=== PATIENT | female | born 1995 | race Caucasian/White ===

== ENCOUNTER 2017-07-04 22:40 | Emergency (ER) | payer SELFPAY ==
--- NOTE | 2017-07-04 23:29 | ER Document Report ---
HPI - HPI Pain Level: 3 Notes: Patient is a 21-year-old female no significant past medical history presents ED complaining of a sore throat and some white spots on the back of her throat 3- 4 days. Patient states that she is otherwise eating and drinking without difficulties. She is urinating normally and having normal bowel movements. Patient has use of Tylenol Motrin as needed. She otherwise feels well with no other concerns or complaints at this time. Patient denies any drug allergies. Denies any headache, fever, head injury, neck pain, changes in vision/speech/ mentation/hearing, URI, chest pain, palpitations, syncope, cough, shortness of breath, wheeze, dyspnea, abdominal pain, nausea/vomiting/diarrhea, dysuria, hematuria, or rash. - ROS Notes: REVIEW OF SYSTEMS: CONSTITUTIONAL : Denies fever, chills, or sweats. Denies recent illness. EENT: see hpi CARDIOVASCULAR: Denies chest pain. Denies palpitations or racing or irregular heart beat. RESPIRATORY: Denies cough, cold, or chest congestion. Denies shortness of breath, difficulty breathing, or wheezing. GASTROINTESTINAL: Denies abdominal pain or distention. Denies nausea, vomiting , or diarrhea. Denies blood in vomitus, stools, or per rectum. Denies black, tarry stools. Denies constipation. GENITOURINARY: Denies difficulty urinating, painful urination, burning, frequency, blood in urine, or discharge. MUSCULOSKELETAL: Denies back or neck pain or stiffness. Denies joint pain or swelling. SKIN: Denies rash, lesions or sores. NEUROLOGICAL: Denies dizziness or lightheadedness. Denies headache. Denies problems with gait or speech. Denies sensory loss, numbness, or tingling. Denies seizures. ALL OTHER SYSTEMS REVIEWED AND NEGATIVE. Dictation was performed using [employer] voice recognition software - CONSTITUTIONAL Constitutional: DENIES: Fever, Chills - EENT EENT: REPORTS: Sore Throat. DENIES: Ear Pain, Eye problems - NEURO Neurology: DENIES: Headache, Weakness, Vision blurred, Dizzinesss / Vertigo - CARDIOVASCULAR Cardiovascular: DENIES: Chest pain - RESPIRATORY Respiratory: DENIES: Trouble Breathing, Coughing - GASTROINTESTINAL Gastrointestinal: DENIES: Abdominal Pain, Black / Bloody Stools - URINARY Urinary: DENIES: Dysuria, Urgency, Frequency - REPRODUCTIVE Reproductive: DENIES: : - MUSCULOSKELETAL Musculoskeletal: DENIES: Extremity pain Past Medical History - Social History Smoking Status: Unknown if Ever Smoked Family History: None, Other Patient has suicidal ideation: No Patient has homicidal ideation: No Renal/ Medical History: Denies: Hx Peritoneal Dialysis GI Medical History: Reports: Hx Ulcerative Colitis Psychiatric Medical History: Reports: Hx Depression, Hx Post Traumatic Stress Disorder - Immunizations Immunizations up to date: Yes Hx Diphtheria, Pertussis, Tetanus Vaccination: No Vertical Provider Document - CONSTITUTIONAL Agree With Documented VS: Yes Notes: PHYSICAL EXAMINATION: GENERAL: Well-appearing, well-nourished and in no acute distress. A&Ox4, appears comfortable and non-toxic. HEAD: Atraumatic, normocephalic. EYES: Pupils equal round and reactive to light, extraocular movements intact, sclera anicteric, conjunctiva are normal. ENT: EAC clear b/l. TM's intact b/l without erythema, fluid, or perforation. Nares patent and without discharge. oropharynx mild erythema with scant exudates. 1+ tonsilar hypertrophy with mild erythema. No palatine shift. Uvula midline. No tongue protrusion. Moist mucous membranes. No sinus tenderness. No hoarseness. No airway compromise. No drooling. NECK: Normal range of motion, supple with anterior cerv lymphadenopathy. No rigidity/meningismus. LUNGS: Breath sounds clear to auscultation bilaterally and equal. No wheezes rales or rhonchi. HEART: Regular rate and rhythm without murmurs, rubs, gallops. ABDOMEN: Soft, nontender, nondistended abdomen. No guarding, no rebound. No masses appreciated. Normal bowel sounds present. No CVA tenderness bilaterally. No hepatosplenomegaly. NEUROLOGICAL: Normal speech, normal gait. Normal sensory, motor exams PSYCH: Normal mood, normal affect. SKIN: Warm, Dry, normal turgor, no rashes or lesions noted. - INFECTION CONTROL TRAVEL OUTSIDE OF THE [place] IN LAST 30 DAYS: No - RESPIRATORY O2 Sat by Pulse Oximetry: 97 Course - Re-evaluation Re-evalutation: 07/04/17 23:58 Patient is an afebrile, well-hydrated, 21-year-old female who presents the ED with acute pharyngitis, suspect viral at this time. Patient is otherwise asymptomatic aside from the "mild" sore throat. Vitals are stable. PE is otherwise unremarkable. Rapid strep was negative with a throat culture pending. Low suspicion for any meningitis, sepsis, peritonsillar/pharyngeal abscess, respiratory compromise, Godwin's, or other emergent systemic condition at this time. Patient is aware this condition can change from initial presentation and she needs to monitor symptoms closely. Conservative measures otherwise for symptoms. Recheck with your PCM in 3-5 days. Return to the ED with any worsening/concerning symptoms otherwise as reviewed in discharge. Patient is in agreement. - Vital Signs Vital signs: Temp Pulse Resp BP Pulse Ox 98.7 F 98 134/69 H 97 07/04/17 22:47 07/04/17 22:47 07/04/17 22:47 07/04/17 22:47 Discharge - Discharge Clinical Impression: Acute pharyngitis Qualifiers: Pharyngitis/tonsillitis etiology: unspecified etiology Qualified Code(s): J02.9 - Acute pharyngitis, unspecified Condition: Stable Disposition: HOME, SELF-CARE Instructions: Sore Throat ([facility]) Additional Instructions: Maintain adequate fluid intake Take meds as directed Salt water gargles, throat sprays, mouthwash rinse, peroxide gargles tylenol/ibuprofen as needed Avoid contact sports for at least 6 weeks as precautionary. over the counter cold medication as needed for symptoms F/u: with your PCM in 3-5 days for a recheck Return to the ED with any fever, worsening pain, chest pain, neck pain/stiffness , shortness of breath, cough, drooling, trouble swallowing/breathing, abdominal pain, n/v/d, rash, or worsening/concerning symptoms otherwise. Forms: Elevated Blood Pressure Referrals: [facility] [Provider Group] - Follow up as needed [facility] [Provider Group] - Follow up as needed
[2017-07-05 00:08] VITALS: BP 137/82
== END 2017-07-05 00:08 | disposition home or self-care (01) ==
LOC: ER 22:40
DX: J02.9 Acute pharyngitis, unspecified (principal)
CPT/HCPCS: 87070; 87880; 99283

== ENCOUNTER 2017-07-10 23:37 | Emergency (ER) | payer SELFPAY ==
--- NOTE | 2017-07-11 01:23 | ER Document Report ---
ED General - General Chief Complaint: Cold Symptoms Stated Complaint: FEVER, BODY ACHES Time Seen by Provider: 07/11/17 01:22 Mode of Arrival: Ambulatory Information source: Patient Notes: 21 years old female presents today with earache sore throat feverish feeling general pain and discomfort as well as felt dizzy at one point when she was walking. This happened just prior to arrival. Currently has no fever chills no cough no difficulty in breathing. No nausea vomiting diarrhea or constipation. States she drinks constantly water TRAVEL OUTSIDE OF THE [place] IN LAST 30 DAYS: No - Related Data Allergies/Adverse Reactions: adhesive [Adhesive] Allergy (Verified 07/10/17 23:56) cinnamon [Cinnamon] Allergy (Verified 07/10/17 23:56) lamotrigine [From Lamictal ODT] Allergy (Verified 07/10/17 23:56) latex [Latex] Allergy (Verified 07/10/17 23:56) Past Medical History - Social History Smoking Status: Unknown if Ever Smoked Family History: None, Other Patient has suicidal ideation: No Patient has homicidal ideation: No Renal/ Medical History: Denies: Hx Peritoneal Dialysis GI Medical History: Reports: Hx Ulcerative Colitis Psychiatric Medical History: Reports: Hx Depression, Hx Post Traumatic Stress Disorder - Immunizations Immunizations up to date: Yes Hx Diphtheria, Pertussis, Tetanus Vaccination: No Review of Systems - Review of Systems Notes: REVIEW OF SYSTEMS: CONSTITUTIONAL : Denies fever, chills, or sweats. Denies recent illness. EENT: As per history of complain CARDIOVASCULAR: Denies chest pain. Denies palpitations or racing or irregular heart beat. Denies ankle edema. RESPIRATORY: Denies cough, cold, or chest congestion. Denies shortness of breath, difficulty breathing, or wheezing. GASTROINTESTINAL: Denies abdominal pain or distention. Denies nausea, vomiting , or diarrhea. Denies blood in vomitus, stools, or per rectum. Denies black, tarry stools. Denies constipation. GENITOURINARY: Denies difficulty urinating, painful urination, burning, frequency, blood in urine, or discharge. FEMALE GENITOURINARY: Denies vaginal bleeding, heavy or abnormal periods, irregular periods. Denies vaginal discharge or odor. MUSCULOSKELETAL: Denies back or neck pain or stiffness. Denies joint pain or swelling. SKIN: Denies rash, lesions or sores. HEMATOLOGIC : Denies easy bruising or bleeding. LYMPHATIC: Denies swollen, enlarged glands. NEUROLOGICAL: Denies confusion or altered mental status. Denies passing out or loss of consciousness. Denies dizziness or lightheadedness. Denies headache. Denies weakness or paralysis or loss of use of either side. Denies problems with gait or speech. Denies sensory loss, numbness, or tingling. Denies seizures. PSYCHIATRIC: Denies anxiety or stress. Denies depression, suicidal ideation, or homicidal ideation. ALL OTHER SYSTEMS REVIEWED AND NEGATIVE. PHYSICAL EXAMINATION: GENERAL: Well-appearing, well-nourished and in no acute distress. HEAD: Atraumatic, normocephalic. EYES: Pupils equal round and reactive to light, extraocular movements intact, conjunctiva are normal. ENT: Nares patent, oropharynx clear without exudates. Moist mucous membranes. Oropharynx is slightly erythematous NECK: Normal range of motion, supple without lymphadenopathy LUNGS: Breath sounds clear to auscultation bilaterally and equal. No wheezes rales or rhonchi. HEART: Regular rate and rhythm without murmurs ABDOMEN: Soft, nontender, nondistended abdomen. No guarding, no rebound. No masses appreciated. Female : deferred Musculoskeletal: Normal range of motion, no pitting or edema. No cyanosis. NEUROLOGICAL: Cranial nerves grossly intact. Normal speech, normal gait. Normal sensory, motor exams PSYCH: Normal mood, normal affect. SKIN: Warm, Dry, normal turgor, no rashes or lesions noted. Dictation was performed using [employer] voice recognition software Physical Exam - Vital signs Vitals: Temp Pulse Resp BP Pulse Ox 100.0 F 118 H 20 136/76 H 99 07/11/17 00:02 07/11/17 00:02 07/11/17 00:02 07/11/17 00:02 07/11/17 00:02 Course - Re-evaluation Re-evalutation: 07/11/17 03:24 Strep throat came back negative white count was elevated, therefore chest x-ray was done which came back negative. UA also normal. Soft her white count is not known possibly stressed but holiday season coming in to be safe she was given a gram of Rocephin IM. Since I will not be able to see her again as well as - Vital Signs Vital signs: Temp Pulse Resp BP Pulse Ox 100.0 F 118 H 20 136/76 H 99 07/11/17 00:02 07/11/17 00:02 07/11/17 00:02 07/11/17 00:02 07/11/17 00:02 - Laboratory Result Diagrams: 07/11/17 01:36 07/11/17 01:36 Laboratory results interpreted by me: 07/11/17 07/11/17 01:36 01:36 WBC 18.6 H Absolute Neutrophils 14.4 H Calcium 10.5 H Discharge - Discharge Clinical Impression: Fever Qualifiers: Fever type: unspecified Qualified Code(s): R50.9 - Fever, unspecified Pharyngitis Qualifiers: Pharyngitis/tonsillitis etiology: unspecified etiology Qualified Code(s): J02.9 - Acute pharyngitis, unspecified Condition: Fair Disposition: HOME, SELF-CARE Instructions: Fever ([facility]) Prescriptions: Cefdinir 300 mg PO BID #20 capsule
[2017-07-11 01:47] LABS: ABSOLUTE EOSINOPHILS # (AUTO) 0.1 10^3/uL (0.0-0.6); ABSOLUTE LYMPHOCYTES (AUTO) 2.7 10^3/uL (0.5-4.7); ABSOLUTE MONOCYTES (AUTO) 1.3 10^3/uL (0.1-1.4); ABSOLUTE NEUT (AUTO) 14.4 10^3/uL (1.7-8.2); BASOPHILS % (AUTO) 0.2 % (0-2); EOSINOPHILS % (AUTO) 0.7 % (0-6); HEMATOCRIT 41.1 % (36.0-47.0); HEMOGLOBIN 14.3 g/dL (12.0-15.5); HGB HCT DIFFERENCE 1.8; LYMPHOCYTES % (AUTO) 14.3 % (13-45); MEAN CORPUSCULAR HEMOGLOBIN 30.2 pg (27.0-33.4); MEAN CORPUSCULAR HGB CONC 34.8 g/dL (32.0-36.0); MEAN CORPUSCULAR VOLUME 87 fl (80-97); MONOCYTES % (AUTO) 7.2 % (3-13); RED BLOOD COUNT 4.74 10^6/uL (3.72-5.28); RED CELL DISTRIBUTION WIDTH 13.2 % (11.5-14.0); SEGMENTED NEUTROPHILS % (AUTO) 77.6 % (42-78); WHITE BLOOD COUNT 18.6 10^3/uL (4.0-10.5)
[2017-07-11 03:10] LABS: ALANINE AMINOTRANSFERASE 37 U/L (9-52); ALBUMIN 4.5 g/dL (3.5-5.0); ALKALINE PHOSPHATASE 82 U/L (38-126); ANION GAP 14 (5-19); ASPARTATE AMINO TRANSFERASE 28 U/L (14-36); BILIRUBIN,DIRECT 0.4 mg/dL (0.0-0.4); BILIRUBIN,TOTAL 1.1 mg/dL (0.2-1.3); BLOOD UREA NITROGEN 14 mg/dL (7-20); CALCIUM 10.5 mg/dL (8.4-10.2); CARBON DIOXIDE 25 mmol/L (22-30); CHLORIDE 104 mmol/L (98-107); CREATININE RESULT 0.63 mg/dL (0.52-1.25); GLUCOSE 94 mg/dL (75-110); POTASSIUM 4.4 mmol/L (3.6-5.0); SODIUM 142.7 mmol/L (137-145); TOTAL PROTEIN 7.4 g/dL (6.3-8.2)
--- NOTE | 2017-07-11 03:19 | RADIOLOGY REPORT (SQ) ---
EXAM DESCRIPTION: CHEST PA/LAT CLINICAL HISTORY: 21 years, Female, COUGH COMPARISON: 02/13/2014 LIMITATIONS: None. FINDINGS: Clear lungs, normal cardiac silhouette, and intact bony thorax. IMPRESSION: No acute cardiopulmonary findings. 2011 [employer]- All Rights Reserved
[2017-07-11] MEDS ORDERED: CEFTRIAXONE INJ 1000 MG VIAL IM ONE (03:21)
[2017-07-11 03:41] VITALS: BP 132/88
== END 2017-07-11 03:41 | disposition home or self-care (01) ==
LOC: ER 23:37
DX: J02.9 Acute pharyngitis, unspecified (principal); R50.9 Fever, unspecified; H92.09 Otalgia, unspecified ear; R42 Dizziness and giddiness; D72.829 Elevated white blood cell count, unspecified; Z91.048 Other nonmedicinal substance allergy status; Z91.018 Allergy to other foods; Z91.040 Latex allergy status; Z88.8 Allergy status to other drugs, medicaments and biological substances
CPT/HCPCS: 99283; 96372; 36415; 87070; 87880; 85025; 80053; 71020; J0696

== ENCOUNTER 2017-09-10 06:02 | Emergency (ER) | payer SELFPAY ==
--- NOTE | 2017-09-10 06:59 | ER Document Report ---
ED ENT - General Chief Complaint: Ear Pain Stated Complaint: RIGHT EAR PAIN Time Seen by Provider: 09/10/17 06:26 Notes: Patient states she was cleaning her ears with some hydrogen peroxide. Has not felt the same since. Cannot hear out of the right ear and having pain in the right ear. No fever, chills, sweats. No abdominal pain. No other complaints at this time. TRAVEL OUTSIDE OF THE [place] IN LAST 30 DAYS: No - HPI Patient complains to provider of: Ear problem Onset: Yesterday Severity: Moderate Pain Level: 3 Associated symptoms: Ear drainage - Related Data Allergies/Adverse Reactions: adhesive [Adhesive] Allergy (Verified 07/10/17 23:56) cinnamon [Cinnamon] Allergy (Verified 07/10/17 23:56) lamotrigine [From Lamictal ODT] Allergy (Verified 07/10/17 23:56) latex [Latex] Allergy (Verified 07/10/17 23:56) Past Medical History - General Information source: Patient - Social History Smoking Status: Unknown if Ever Smoked Cigarette use (# per day): No Frequency of alcohol use: None Drug Abuse: None Lives with: Family Family History: None, Other Patient has suicidal ideation: No Patient has homicidal ideation: No Renal/ Medical History: Denies: Hx Peritoneal Dialysis GI Medical History: Reports: Hx Ulcerative Colitis Psychiatric Medical History: Reports: Hx Depression, Hx Post Traumatic Stress Disorder - Immunizations Immunizations up to date: Yes Hx Diphtheria, Pertussis, Tetanus Vaccination: No Review of Systems - Review of Systems Constitutional: denies: Fever, Malaise, Weakness EENT: Ear pain, Ear discharge. denies: Sinus pressure, Sinus discharge, Throat pain, Difficulty swallowing Cardiovascular: denies: Chest pain, Palpitations, Heart racing Gastrointestinal: denies: Abdominal pain, Diarrhea, Nausea Skin: denies: Change in color, Lumps, Rash Neurological/Psychological: denies: Headaches, Numbness Physical Exam - Vital signs Vitals: Temp Pulse Resp BP Pulse Ox 98.0 F 97 16 132/77 H 100 09/10/17 06:11 09/10/17 06:11 09/10/17 06:11 09/10/17 06:11 09/10/17 06:11 Interpretation: Normal - General General appearance: Appears well, Alert - HEENT Head: Normocephalic Eyes: Normal External canal: Blood in canal, Erythema, Swollen Tympanic membrane: Bulging Sinus: Normal - Respiratory Respiratory status: No respiratory distress Chest status: Nontender Breath sounds: Normal Chest palpation: Normal - Cardiovascular Rhythm: Regular Heart sounds: Normal auscultation Murmur: No - Abdominal Inspection: Normal Distension: No distension Bowel sounds: Normal Tenderness: Nontender Organomegaly: No organomegaly - Back Back: Normal, Nontender - Neurological Neuro grossly intact: Yes Cognition: Normal Orientation: AAOx4 [place] Coma Scale Eye Opening: Spontaneous [place] Coma Scale Verbal: Oriented [place] Coma Scale Motor: Obeys Commands [place] Coma Scale Total: 15 Speech: Normal Motor strength normal: LUE, RUE, LLE, RLE Sensory: Normal Course - Re-evaluation Re-evalutation: 09/10/17 06:53 We will prescribe some oral as well as topical anyibiotics for this ear. Advised to return for any worsening symptoms or concerns. 09/10/17 06:54 - Vital Signs Vital signs: Temp Pulse Resp BP Pulse Ox 98.0 F 97 16 132/77 H 100 09/10/17 06:11 09/10/17 06:11 09/10/17 06:11 09/10/17 06:11 09/10/17 06:11 Discharge - Discharge Clinical Impression: Otitis externa Qualifiers: Otitis externa type: unspecified type Chronicity: acute Laterality: right Qualified Code(s): H60.501 - Unspecified acute noninfective otitis externa, right ear Condition: Good Disposition: HOME, SELF-CARE Additional Instructions: Otitis Media You have a middle ear infection (otitis media). This is usually a complication of a cold or sore throat. The middle ear cavity becomes filled with infection. Pressure and stretching of the ear drum cause pain. Antibiotics are required. A 10 day course is usually prescribed. A decongestant may be recommended if you have a "runny nose." You may need anesthetic drops or other pain medication. A follow-up exam may be recommended to make sure the infection has completely cleared. If the ear begins to drain, it means the ear drum has ruptured. This will usually heal spontaneously. However, it means you should keep the ear dry until re-examined by a doctor. Call the physician or return for examination at once if there is severe headache, stiff neck, confusion, increasing fever, or dizziness. You should improve significantly within two days. If you're not better, call the doctor. Otitis Externa You have otitis externa -- an infection of the outer ear canal. This can be very painful. It's sometimes called "swimmer's ear," because it often occurs after prolonged water exposure. Many things, such as earwax and dirt in the ear, can contribute to it. The usual treatment is antibiotic/antiinflammatory ear drops. Occasionally , a wick will be placed in the ear to draw in the medicine. If the infection is severe, an oral antibiotic may be prescribed. Pain medication is often needed. Avoid getting water in the ear. Outer ear infections often take longer to heal than you might expect. Some tenderness and ache in the ear may persist for about two weeks. See your physician if you fail to improve as expected. Call the doctor at once if you develop fever, increasing swelling (particularly if it makes your ear "poke out"), severe headache, stiff neck, or decreased hearing. Prescriptions: Amoxicillin Trihydrate [Amoxil 500 mg Capsule] 500 mg PO TID 10 Days #30 capsule Neomy Sulf/Polymyx B Sulf/Hc [Cortisporin Otic Susp] 2 drop RT_EAR TID 7 Days # 1 bottle
[2017-09-10 07:51] VITALS: BP 133/77
== END 2017-09-10 07:51 | disposition home or self-care (01) ==
LOC: ER 06:02
DX: H60.501 Unspecified acute noninfective otitis externa, right ear (principal); H92.01 Otalgia, right ear
CPT/HCPCS: 99282

== ENCOUNTER 2017-09-12 22:51 | Emergency (ER) | payer SELFPAY ==
[2017-09-12 22:56] VITALS: BP 128/79
--- NOTE | 2017-09-12 23:56 | ER Document Report ---
HPI - HPI Patient complains to provider of: Right ear pain Pain Level: 3 Context: Patient is a 22-year-old female comes emergency department for chief complaint of not being able to hear out of her right ear and having intermittent mild throbbing sensation in the same ear over the past 2 days. She states she was evaluated yesterday in the emergency department, diagnosed with ear infection, placed on amoxicillin and Cortisporin, states she is taking both of them, states she filled and took Sudafed as well on recommendation, states she still cannot hear out of the ear. She denies current pain from the ear. Denies dizziness, nausea vomiting, fever or chills, or any other complaints. - CONSTITUTIONAL Constitutional: DENIES: Fever, Chills - EENT EENT: REPORTS: Ear Pain. DENIES: Sore Throat, Eye problems - NEURO Neurology: DENIES: Headache, Weakness, Vision blurred, Dizzinesss / Vertigo - CARDIOVASCULAR Cardiovascular: DENIES: Chest pain - RESPIRATORY Respiratory: DENIES: Trouble Breathing, Coughing - GASTROINTESTINAL Gastrointestinal: DENIES: Abdominal Pain, Black / Bloody Stools - URINARY Urinary: DENIES: Dysuria, Urgency, Frequency - REPRODUCTIVE Reproductive: DENIES: : - MUSCULOSKELETAL Musculoskeletal: DENIES: Extremity pain Past Medical History - General Information source: Patient - Social History Smoking Status: Never Smoker Frequency of alcohol use: None Drug Abuse: None Lives with: Family Family History: None, Other Patient has suicidal ideation: No Patient has homicidal ideation: No Renal/ Medical History: Denies: Hx Peritoneal Dialysis GI Medical History: Reports: Hx Ulcerative Colitis Psychiatric Medical History: Reports: Hx Depression, Hx Post Traumatic Stress Disorder Surgical Hx: Negative - Immunizations Immunizations up to date: Yes Hx Diphtheria, Pertussis, Tetanus Vaccination: No Vertical Provider Document - CONSTITUTIONAL General Appearance: WD/WN, No Apparent Distress, Obese - INFECTION CONTROL TRAVEL OUTSIDE OF THE [place] IN LAST 30 DAYS: No - HEENT HEENT: Atraumatic, Normocephalic. negative: Normal ENT Exam - Right-sided middle ear effusion with purulent component and dull tympanic membrane. No tragus tenderness, no mastoid swelling or erythema, normal oropharyngeal exam, normal ENT exam otherwise - NECK Neck: Normal Inspection - RESPIRATORY Respiratory: Breath Sounds Normal, No Respiratory Distress O2 Sat by Pulse Oximetry: 100 - CARDIOVASCULAR Cardiovascular: Regular Rate, Regular Rhythm - GI/ABDOMEN Gastrointestinal: Abdomen Soft, Abdomen Non-Tender - MUSCULOSKELETAL/EXTREMETIES Musculoskeletal/Extremeties: MAEW, FROM, Non-Tender - NEURO Level of Consciousness: Awake, Alert, Appropriate Course - Re-evaluation Re-evalutation: Patient with examination showing middle ear effusion with a purulent component, unremarkable external canal, no perforation, drainage, or other abnormality. No lymphadenopathy, sinus distress, nausea or vomiting. Patient smiling and well-appearing. Patient denying any current pain. Discussed with patient appropriate current regimen, adding Flonase, patient states she already takes intermittent allergy medication, advised her to start taking it again. Advised that this could take time to resolve. Discussed return precautions, follow-up, patient states understanding and agreement - Vital Signs Vital signs: Temp Pulse Resp BP Pulse Ox 97.4 F 85 128/79 H 100 09/12/17 22:56 09/12/17 22:56 09/12/17 22:56 09/12/17 22:56 Discharge - Discharge Clinical Impression: Otitis media Qualifiers: Otitis media type: suppurative Chronicity: acute Laterality: right Recurrence: not specified as recurrent Spontaneous tympanic membrane rupture: without spontaneous rupture Qualified Code(s): H66.001 - Acute suppurative otitis media without spontaneous rupture of ear drum, right ear Condition: Stable Disposition: HOME, SELF-CARE Additional Instructions: Your exam is consistent with an effusion (fluid) and infection of the middle ear on the right side, this is most likely the cause of decreased hearing and discomfort, no perforation of the eardrum or other abnormality is seen. Recommendation is to continue amoxicillin and Sudafed, you can add Flonase nasal spray and your regular antiallergy medication. This should open up with time although usually does not happen immediately. You can continue the eardrops as well, although no ear canal abnormality is seen in today's visit. Take Tylenol or ibuprofen for discomfort. Follow-up with primary care. Return for any concerning symptoms including fever of 100.4 or greater, severe pain, redness, or swelling behind the ear, vomiting, or any other concerning symptoms. Prescriptions: Fluticasone Propionate [Flonase Nasal [place] 50 Mcg/[place] 16 gm] 2 sprays NASL Q12 #1 inhaler Forms: Return to Work Referrals: RAYMOND ESTES MD [Primary Care Provider] - Follow up as needed
== END 2017-09-13 00:01 | disposition home or self-care (01) ==
LOC: ER 22:51
DX: H66.001 Acute suppurative otitis media without spontaneous rupture of ear drum, right ear (principal); H92.01 Otalgia, right ear; H91.90 Unspecified hearing loss, unspecified ear
CPT/HCPCS: 99282

== ENCOUNTER 2017-10-29 02:11 | Emergency (ER) | payer SELFPAY ==
[2017-10-29] MEDS ORDERED: NORMAL SALINE 1000 ML 1,000 ML IV ONE (04:12)
[2017-10-29] MEDS ORDERED: ACETAMINOPHEN 325 MG TABLET PO ONE (04:12)
--- NOTE | 2017-10-29 04:16 | ER Document Report ---
ED General - General Chief Complaint: Chest Pain Stated Complaint: CHEST PAIN Time Seen by Provider: 10/29/17 03:44 Mode of Arrival: Ambulatory Information source: Patient Notes: Patient presents complaining of upper chest and back pain for the past 3 days. Patient describes the pain as a pressure. Patient denies any cough or cold symptoms. Patient does complain of nausea for the past week with some headache pain tonight. Patient denies any fever, vomiting or diarrhea. Patient states that her blood pressure was elevated tonight and that it was 140 systolic. Patient also reports a family history of aneurysm and is concerned about this tonight. Patient does report a history of anxiety but does not take any medications to treat this presently. TRAVEL OUTSIDE OF THE [place] IN LAST 30 DAYS: No - HPI Onset: Last week Onset/Duration: Persistent Quality of pain: Pressure Pain Level: 3 Associated symptoms: Chest pain, Headache, Nausea. denies: Nonproductive cough , Productive cough, Vomiting, Shortness of breath Exacerbated by: Denies Relieved by: Denies Similar symptoms previously: No Recently seen / treated by doctor: No - Related Data Allergies/Adverse Reactions: adhesive [Adhesive] Allergy (Verified 07/10/17 23:56) cinnamon [Cinnamon] Allergy (Verified 07/10/17 23:56) lamotrigine [From Lamictal ODT] Allergy (Verified 07/10/17 23:56) latex [Latex] Allergy (Verified 07/10/17 23:56) Past Medical History - General Information source: Patient - Social History Smoking Status: Never Smoker Frequency of alcohol use: None Drug Abuse: None Occupation: Foodservice Family History: None, Other Renal/ Medical History: Denies: Hx Peritoneal Dialysis GI Medical History: Reports: Hx Ulcerative Colitis Psychiatric Medical History: Reports: Hx Anxiety, Hx Depression, Hx Post Traumatic Stress Disorder - Immunizations Immunizations up to date: Yes Hx Diphtheria, Pertussis, Tetanus Vaccination: No Review of Systems - Review of Systems Constitutional: No symptoms reported. denies: Fever, Recent illness EENT: No symptoms reported Cardiovascular: Chest pain Respiratory: No symptoms reported. denies: Cough, Short of breath Gastrointestinal: Nausea. denies: Abdominal pain, Diarrhea, Vomiting Genitourinary: No symptoms reported. denies: Dysuria Female Genitourinary: No symptoms reported Musculoskeletal: Back pain Skin: No symptoms reported Hematologic/Lymphatic: No symptoms reported Neurological/Psychological: No symptoms reported Physical Exam - Vital signs Vitals: Temp Pulse Resp BP Pulse Ox 98.1 F 106 H 16 121/71 100 10/29/17 02:18 10/29/17 02:18 10/29/17 02:18 10/29/17 02:18 10/29/17 02:18 - General General appearance: Appears well, Alert In distress: None - HEENT Head: Normocephalic, Atraumatic Eyes: Normal Conjunctiva: Normal Nasal: Normal Mouth/Lips: Normal Neck: Normal, Supple. No: Lymphadenopathy - Respiratory Respiratory status: No respiratory distress Chest status: Pain on movement Breath sounds: Normal Chest palpation: Tender - Cardiovascular Rhythm: Tachycardia Heart sounds: S1 appreciated, S2 appreciated Murmur: No - Abdominal Inspection: Obese Distension: No distension Bowel sounds: Normal Tenderness: Nontender Organomegaly: No organomegaly - Back Back: Tender - Upper thoracic tenderness. No: CVA tenderness, Vertebra tenderness - Extremities General upper extremity: Normal inspection, Nontender, Normal ROM General lower extremity: Normal inspection, Nontender, Normal ROM - Neurological Neuro grossly intact: Yes Cognition: Normal Addison Coma Scale Eye Opening: Spontaneous Addison Coma Scale Verbal: Oriented [place] Coma Scale Motor: Obeys Commands [place] Coma Scale Total: 15 - Psychological Associated symptoms: Normal affect, Normal mood - Skin Skin Temperature: Warm Skin Moisture: Dry Skin Color: Normal Course - Re-evaluation Re-evalutation: 10/29/17 06:00 Patient resting in darkened room. Patient encouraged to obtain urinalysis specimen. Patient chewing on ice chips at this time. 10/29/17 06:57 Patient reports chest discomfort seems to be improved although complains of headache pain now. Patient is requesting additional medication for nausea as well. Discussed results of patient's diagnostic tests with her. Patient advised of elevated LFT and encouraged to see her primary doctor to have this lab reevaluated in the next week. 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 The patient is neurologically intact. Given the extremely low risk of these diagnoses further testing and evaluation for these possibilities does not appear to be indicated at this time. The patient has been instructed to return if the symptoms worsen or change in any way. The patient has atypical chest pain as the patient's chest pain is not suggestive of pulmonary embolus, cardiac ischemia, aortic dissection, or other serious etiology. Given the extremely low risk of these diagnoses for the test in evaluation for these possibilities does not appear to be indicated at this time. Patient has been instructed to return if the symptoms worsen or change in any way. - Vital Signs Vital signs: Temp Pulse Resp BP Pulse Ox 98.6 F 92 16 128/76 H 100 10/29/17 07:28 10/29/17 07:28 10/29/17 07:28 10/29/17 07:28 10/29/17 07:28 - Laboratory Result Diagrams: 10/29/17 04:35 10/29/17 04:35 Laboratory results interpreted by me: 10/29/17 10/29/17 10/29/17 04:35 04:35 06:03 Seg Neutrophils % 37.0 L Lymphocytes % 52.0 H Absolute Lymphocytes 5.4 H Carbon Dioxide 32 H AST 57 H ALT 82 H Ur Leukocyte Esterase TRACE H Labs- Entire Visit 10/29/17 10/29/17 10/29/17 04:35 04:35 04:35 WBC 10.5 RBC 4.51 Hgb 13.3 Hct 38.4 MCV 85 MCH 29.4 MCHC 34.5 RDW 13.2 Plt Count 253 Seg Neutrophils % 37.0 L Lymphocytes % 52.0 H Monocytes % 9.8 Eosinophils % 0.6 Basophils % 0.6 Absolute Neutrophils 3.9 Absolute Lymphocytes 5.4 H Absolute Monocytes 1.0 Absolute Eosinophils 0.1 Absolute Basophils 0.1 Sodium 144.2 Potassium 3.9 Chloride 102 Carbon Dioxide 32 H Anion Gap 10 BUN 16 Creatinine 0.56 Est GFR ( Amer) > 60 Est GFR (Non-Af Amer) > 60 Glucose 100 Calcium 9.8 Total Bilirubin 1.1 Direct Bilirubin 0.1 Neonat Total Bilirubin Not Reportable Neonat Direct Bilirubin Not Reportable Neonat Indirect Bili Not Reportable AST 57 H ALT 82 H Alkaline Phosphatase 78 Troponin I < 0.012 Total Protein 7.2 Albumin 4.5 Lipase 146.9 Serum HCG, Qual Urine Color Urine Appearance Urine pH Ur Specific [place]andy[place] Urine Protein Urine Glucose (UA) Urine Ketones Urine Blood Urine Nitrite Urine Bilirubin Urine Urobilinogen Ur Leukocyte Esterase Urine WBC (Auto) Urine RBC (Auto) Squamous Epi Cells Auto Urine Mucus (Auto) Urine Ascorbic Acid Urine Opiates Screen Urine Methadone Screen Ur Barbiturates Screen Ur Phencyclidine Scrn Ur Amphetamines Screen U Benzodiazepines Scrn Urine Cocaine Screen U Marijuana (THC) Screen 10/29/17 10/29/17 10/29/17 04:35 06:03 06:03 WBC RBC Hgb Hct MCV MCH MCHC RDW Plt Count Seg Neutrophils % Lymphocytes % Monocytes % Eosinophils % Basophils % Absolute Neutrophils Absolute Lymphocytes Absolute Monocytes Absolute Eosinophils Absolute Basophils Sodium Potassium Chloride Carbon Dioxide Anion Gap BUN Creatinine Est GFR ( Amer) Est GFR (Non-Af Amer) Glucose Calcium Total Bilirubin Direct Bilirubin Neonat Total Bilirubin Neonat Direct Bilirubin Neonat Indirect Bili AST ALT Alkaline Phosphatase Troponin I Total Protein Albumin Lipase Serum HCG, Qual NEGATIVE Urine Color YELLOW Urine Appearance SLIGHTLY-CLOUDY Urine pH 7.0 Ur Specific [place] 1.049 Urine Protein NEGATIVE Urine Glucose (UA) NEGATIVE Urine Ketones NEGATIVE Urine Blood NEGATIVE Urine Nitrite NEGATIVE Urine Bilirubin NEGATIVE Urine Urobilinogen NEGATIVE Ur Leukocyte Esterase TRACE H Urine WBC (Auto) 3 Urine RBC (Auto) 2 Squamous Epi Cells Auto 24 Urine Mucus (Auto) RARE Urine Ascorbic Acid NEGATIVE Urine Opiates Screen NEGATIVE Urine Methadone Screen NEGATIVE Ur Barbiturates Screen NEGATIVE Ur Phencyclidine Scrn NEGATIVE Ur Amphetamines Screen NEGATIVE U Benzodiazepines Scrn NEGATIVE Urine Cocaine Screen NEGATIVE U Marijuana (THC) Screen NEGATIVE - Diagnostic Test Radiology reviewed: Reports reviewed Discharge - Discharge Clinical Impression: Nausea Chest pain Qualifiers: Chest pain type: unspecified Qualified Code(s): R07.9 - Chest pain, unspecified Headache Qualifiers: Headache type: unspecified Headache chronicity pattern: unspecified pattern Intractability: not intractable Qualified Code(s): R51 - Headache Condition: Stable Disposition: HOME, SELF-CARE Instructions: Chest Pain of Unclear Cause ([facility]), Headache ([facility]), Nausea or Vomiting, Nonspecific ([facility]) Additional Instructions: Return immediately for any new or worsening symptoms Followup with your primary care provider, call tomorrow to make a followup appointment Prescriptions: Butalb/Acetaminophen/Caffeine [Fioricet (50-325-40 mg) Tablet] 1 - 2 tab PO Q4H PRN #8 each PRN Reason: Promethazine HCl [Phenergan 25 mg Tablet] 25 mg PO Q6H PRN #8 tablet PRN Reason: Forms: Return to Work Referrals: JERRICA NELSON PA-C [[facility]YSIC[facility]] - Follow up tomorrow
[2017-10-29 04:55] LABS: ABSOLUTE BASOPHILS # (AUTO) 0.1 10^3/uL (0.0-0.2); ABSOLUTE EOSINOPHILS # (AUTO) 0.1 10^3/uL (0.0-0.6); ABSOLUTE LYMPHOCYTES (AUTO) 5.4 10^3/uL (0.5-4.7); ABSOLUTE NEUT (AUTO) 3.9 10^3/uL (1.7-8.2); BASOPHILS % (AUTO) 0.6 % (0-2); EOSINOPHILS % (AUTO) 0.6 % (0-6); HEMATOCRIT 38.4 % (36.0-47.0); HEMOGLOBIN 13.3 g/dL (12.0-15.5); MEAN CORPUSCULAR HEMOGLOBIN 29.4 pg (27.0-33.4); MEAN CORPUSCULAR HGB CONC 34.5 g/dL (32.0-36.0); MEAN CORPUSCULAR VOLUME 85 fl (80-97); MONOCYTES % (AUTO) 9.8 % (3-13); PLATELET COUNT 253 10^3/uL (150-450); RED BLOOD COUNT 4.51 10^6/uL (3.72-5.28); RED CELL DISTRIBUTION WIDTH 13.2 % (11.5-14.0); TOTAL CELLS COUNTED % (AUTO) 100 %; WHITE BLOOD COUNT 10.5 10^3/uL (4.0-10.5)
[2017-10-29] MEDS ORDERED: ONDANSETRON HCL INJ/PF 4 MG/2 ML SDV IV ONE (05:12)
[2017-10-29 05:15] LABS: ALANINE AMINOTRANSFERASE 82 U/L (9-52); ALBUMIN 4.5 g/dL (3.5-5.0); ALKALINE PHOSPHATASE 78 U/L (38-126); ANION GAP 10 (5-19); ASPARTATE AMINO TRANSFERASE 57 U/L (14-36); BILIRUBIN,DIRECT 0.1 mg/dL (0.0-0.4); BILIRUBIN,TOTAL 1.1 mg/dL (0.2-1.3); BLOOD UREA NITROGEN 16 mg/dL (7-20); CALCIUM 9.8 mg/dL (8.4-10.2); CARBON DIOXIDE 32 mmol/L (22-30); CHLORIDE 102 mmol/L (98-107); GLUCOSE 100 mg/dL (75-110); LIPASE 146.9 U/L (23-300); POTASSIUM 3.9 mmol/L (3.6-5.0); SODIUM 144.2 mmol/L (137-145); TOTAL PROTEIN 7.2 g/dL (6.3-8.2)
--- NOTE | 2017-10-29 05:59 | RADIOLOGY REPORT (SQ) ---
EXAM DESCRIPTION: CTA CHEST CLINICAL HISTORY: 22 years Female, cp, fam hx aneurysm COMPARISON: CR, same day. TECHNIQUE: IV contrast. Multiplanar reformat. This exam was performed according to our departmental dose-optimization program, which includes automated exposure control, adjustment of the mA and/or kV according to patient size and/or use of iterative reconstruction technique. FINDINGS: No pulmonary embolus. No right ventricular strain. Mild residual thymic tissue. Prominent spleen partially imaged. Minimal anterior vertebral wedging at a lower thoracic level. Inferior neck, axillae, mediastinum, lungs, airway, lymphatics, heart, vasculature, upper abdomen, and musculoskeleton appear otherwise unremarkable. Impression: No acute cardiopulmonary findings. No pulmonary embolus.
[2017-10-29 06:27] LABS: APPEARANCE,URINE SLIGHTLY-CLOUDY; BILIRUBIN,URINE NEGATIVE (NEGATIVE); COLOR,URINE YELLOW; GLUCOSE, URINE NEGATIVE (NEGATIVE); KETONES,URINE NEGATIVE (NEGATIVE); LEUKOCYTE ESTERASE,URINE TRACE (NEGATIVE); NITRITE,URINE NEGATIVE (NEGATIVE); PROTEIN,URINE NEGATIVE (NEGATIVE); URINE SPECIFIC GRAVITY 1.049; UROBILINOGEN,URINE NEGATIVE mg/dL (<2.0)
[2017-10-29 06:37] LABS: URINE AMPHETAMINES SCREEN NEGATIVE; URINE BARBITURATES SCREEN NEGATIVE; URINE BENZODIAZEPINES SCREEN NEGATIVE; URINE COCAINE SCREEN NEGATIVE; URINE MARIJUANA (THC) SCREEN NEGATIVE; URINE METHADONE SCREEN NEGATIVE; URINE PHENCYCLIDINE SCREEN NEGATIVE
[2017-10-29] MEDS ORDERED: KETOROLAC TROMETHAMINE INJ/PF 30 MG/1 ML SDV IV ONE (06:51)
[2017-10-29] MEDS ORDERED: PROMETHAZINE HCL 25 MG TABLET PO ONE (06:56)
[2017-10-29 07:29] VITALS: BP 128/76
--- NOTE | 2017-10-29 07:49 | EKG REPORT ---
SEVERITY:- OTHERWISE NORMAL ECG - SINUS TACHYCARDIA : Confirmed by: Max Pelaez MD 29-Oct-2017 07:47:42
== END 2017-10-29 07:33 | disposition home or self-care (01) ==
LOC: ER 02:11
DX: R07.89 Other chest pain (principal); R51 Headache; R11.0 Nausea; M54.9 Dorsalgia, unspecified; R79.89 Other specified abnormal findings of blood chemistry; Z91.048 Other nonmedicinal substance allergy status; Z91.018 Allergy to other foods; Z88.8 Allergy status to other drugs, medicaments and biological substances; Z91.040 Latex allergy status
CPT/HCPCS: 93005; 99285; 96361; 96374; 96375; 36415; 83690; 84703; 85025; 80053; 81001; 84484; 80307; 71275; 93010; J1885; J2405; J7030

== ENCOUNTER 2017-12-02 15:10 | Emergency (ER) | payer SELFPAY ==
--- NOTE | 2017-12-02 16:25 | ER Document Report ---
ED General - General Chief Complaint: Leg Pain Stated Complaint: LEG PAIN Time Seen by Provider: 12/02/17 16:10 Mode of Arrival: Ambulatory Information source: Patient TRAVEL OUTSIDE OF THE [place] IN LAST 30 DAYS: No - HPI Notes: 22-year-old female who is approximately 6 weeks presents to the ER with complaints of left calf pain that started last night, woke her up from sleep. Reports pain is 7 out of 10, throbbing achy. Denies any recent immobilization, surgery, periods of travel or clotting disorders. Patient's unsure if she strained her calf. Has not tried any xsty-iqb-wybrpon medications. Worse when she touches her calf, better with rest. Denies any trauma. Patient is a non-smoker. She is taking prenatals. Reports this is her' s first . Denies fevers, chills, chest pain,palpitations, shortness of breath, dyspnea, nausea, vomiting, diarrhea, abdominal pain, hematuria, blurred vision, double vision, loss of vision, speech changes, LH, dizziness, syncope, headaches, wheezing, ST, URI, neck pain, weakness, bowel or bladder dysfunction, saddle anesthesia, numbness or tingling in bilateral upper or lower extremities equally, muscle paralysis, weakness in bilateral upper or lower extremities equally or rash. Denies IV drug use. - Related Data Allergies/Adverse Reactions: adhesive [Adhesive] Allergy (Verified 12/02/17 15:13) cinnamon [Cinnamon] Allergy (Verified 12/02/17 15:13) lamotrigine [From Lamictal ODT] Allergy (Verified 12/02/17 15:13) latex [Latex] Allergy (Verified 12/02/17 15:13) Past Medical History - General Information source: Patient - Social History Smoking Status: Former Smoker Chew tobacco use (# tins/day): No Frequency of alcohol use: None Drug Abuse: None Family History: None, Other Patient has suicidal ideation: No Patient has homicidal ideation: No Renal/ Medical History: Denies: Hx Peritoneal Dialysis GI Medical History: Reports: Hx Ulcerative Colitis Psychiatric Medical History: Reports: Hx Anxiety, Hx Depression - anxiety, Hx Post Traumatic Stress Disorder Past Surgical History: Reports: Hx Tonsillectomy - adnoids - Immunizations Immunizations up to date: Yes Hx Diphtheria, Pertussis, Tetanus Vaccination: No Review of Systems - Review of Systems Constitutional: No symptoms reported EENT: No symptoms reported Cardiovascular: No symptoms reported Respiratory: No symptoms reported Gastrointestinal: No symptoms reported Genitourinary: No symptoms reported Female Genitourinary: No symptoms reported Musculoskeletal: See HPI Skin: No symptoms reported Hematologic/Lymphatic: No symptoms reported Neurological/Psychological: No symptoms reported Physical Exam - Vital signs Vitals: Temp Pulse Resp BP Pulse Ox 97.9 F 104 H 16 133/69 H 99 12/02/17 15:15 12/02/17 15:15 12/02/17 15:15 12/02/17 15:15 12/02/17 15:15 - Notes Notes: PHYSICAL EXAMINATION: GENERAL: Well-appearing, well-nourished and in no acute distress. HEAD: Atraumatic, normocephalic. EYES: Pupils equal round and reactive to light, extraocular movements intact, conjunctiva are normal. ENT: Nares patent, oropharynx clear without exudates. Moist mucous membranes. NECK: Normal range of motion, supple without lymphadenopathy LUNGS: Breath sounds clear to auscultation bilaterally and equal. No wheezes rales or rhonchi. HEART: Regular rate and rhythm without murmurs ABDOMEN: Soft, nontender, nondistended abdomen. No guarding, no rebound. No masses appreciated. Female : deferred Musculoskeletal: Normal range of motion, no pitting or edema. No cyanosis. left calf tenderness with palpation to calf. negative celena's sign. anterior and posterior drawer test negative.Dtr + 2 in BLE. Full motor and sensory function. no ecchymosis or abrasions noted. distal pulses + 2 bilaterally and equally. Bilateral lower extremity without deformity or asymmetry. No STS or edema. No overlying erythema, warmth, discoloration. No lesions or break in the skin integrity. No evidence of compartment syndrome, lymphadenopathy, gangrene. No palpable cords or evidence of thrombophlebitis. NEUROLOGICAL: Cranial nerves grossly intact. Normal speech, normal gait. Normal sensory, motor exams PSYCH: Normal mood, normal affect. SKIN: Warm, Dry, normal turgor, no rashes or lesions noted. Course - Re-evaluation Re-evalutation: 12/02/17 16:23 Healthy 22-year-old female who on recheck her heart rate is 93 presents for evaluation of her left lower calf pain. Who is afebrile, vitals stable and in no distress. CBC negative for any anemia or leukocytosis. Coagulations normal. To confirm patient is . Venous ultrasound negative for DVT, shows that she does have a left superficial thrombophlebitis. Advised to apply heat 20 minutes on 20 minutes off several times a day, to take Tylenol since she cannot take ibuprofen since she is as needed. Follow-up with her doctor within 1-2 days. Please return to emergency department if you notice worsening pain to the affected area, develop shortness of breath or chest pain, or have any other symptoms that are concerning to you. I have reevaluated this patient multiple times and no significant life threatening changes, no signs of toxicity, sepsis or peritonitis are noted. The patient and I have discussed the diagnosis and risks, and we agree with discharging home and close follow- up. We also discussed returning to the Emergency Department immediately if new or worsening symptoms occur with the understanding that symptoms and presentations can change. At this time will discharge with return precautions and follow-up recommendations. Verbal discharge instructions given a the bedside and opportunity for questions given. We have discussed the symptoms which are most concerning (e.g., saddle anesthesia, urinary or bowel incontinence or retention, changing or worsening pain) that necessitate immediate return. Medication warnings reviewed. Patient is in agreement with this plan and has verbalized understanding of return precautions and the need for primary care follow-up in the next 24-72 hours. Patient verbalized understanding of plan of care and agree with plan of care. - Vital Signs Vital signs: Temp Pulse Resp BP Pulse Ox 97.9 F 93 16 125/66 100 12/02/17 16:23 12/02/17 16:23 12/02/17 16:23 12/02/17 16:23 12/02/17 16:23 - Laboratory Result Diagrams: 12/02/17 16:40 Laboratory results interpreted by me: 12/02/17 16:40 Urine HCG, Qual POSITIVE H Discharge - Discharge Clinical Impression: Superficial thrombosis of left lower extremity Condition: Good Disposition: HOME, SELF-CARE Additional Instructions: Your venous ultrasound shows that you have superficial thrombophlebitis, You do not have blood clot. Advised to take Tylenol as needed for pain. Apply heat 20 minutes on 20 minutes off several times a day. Follow-up with your doctor within 1-2 days. Please return to emergency department if you notice worsening pain to the affected area if you develop shortness of breath or chest pain, or have any other symptoms that are concerning to you. Forms: Return to Work Referrals: ARMANDO BECERRA MD [ACTIVE STAFF] - Follow up in 3-5 days ERIC GROSS MD [ACTIVE STAFF] - Follow up as needed
[2017-12-02 17:02] LABS: ABSOLUTE EOSINOPHILS # (AUTO) 0.1 10^3/uL (0.0-0.6); ABSOLUTE MONOCYTES (AUTO) 0.8 10^3/uL (0.1-1.4); ABSOLUTE NEUT (AUTO) 4.4 10^3/uL (1.7-8.2); BASOPHILS % (AUTO) 0.4 % (0-2); EOSINOPHILS % (AUTO) 1.4 % (0-6); HEMATOCRIT 38.1 % (36.0-47.0); HEMOGLOBIN 13.1 g/dL (12.0-15.5); LYMPHOCYTES % (AUTO) 36.4 % (13-45); MEAN CORPUSCULAR HEMOGLOBIN 29.5 pg (27.0-33.4); MEAN CORPUSCULAR HGB CONC 34.4 g/dL (32.0-36.0); MEAN CORPUSCULAR VOLUME 86 fl (80-97); MONOCYTES % (AUTO) 9.3 % (3-13); PLATELET COUNT 256 10^3/uL (150-450); RED BLOOD COUNT 4.44 10^6/uL (3.72-5.28); RED CELL DISTRIBUTION WIDTH 13.3 % (11.5-14.0); SEGMENTED NEUTROPHILS % (AUTO) 52.5 % (42-78); TOTAL CELLS COUNTED % (AUTO) 100 %; WHITE BLOOD COUNT 8.3 10^3/uL (4.0-10.5)
[2017-12-02 17:06] LABS: INTERNATIONAL RATION (INR) 0.92; PROTHROMBIN TIME 12.9 SEC (11.4-15.4)
[2017-12-02 17:07] LABS: PARTIAL THROMBOPLASTIN TIME 27.4 SEC (23.5-35.8)
[2017-12-02 19:17] VITALS: BP 137/69
--- NOTE | 2017-12-03 07:47 | XCELERA REPORT ---
[address] [id number] Lower Extremity Venous Evaluation Name: GERMAIN JOHNS Age: 22 yrs Gender: Female : 1995 Patient Status: Emergency Patient Location: ER Study Date: 12/02/2017 05:56 PM Procedure: Color flow and duplex imaging of the veins of the left lower extremity as well as the right Common Femoral vein. Reason For Study: new onset left calf pain, + preg Ordering Physician: BOB MAIN Performed By: Julisa De Oliveira Right Sided Venous Evaluation The right common femoral vein is fully compressible. Spontaneous and phasic flow is present in the right common femoral vein. Left Sided Venous Evaluation Short Saphenous vein enlargement with no flow, near ankle. Otherwise normal vessel filling wall to wall, compression and augmentation as well as Colour flow down to the infrageniculate veins. Interpretation Summary No duplex evidence of DVT or obstruction in the left lower extremity nor in the right Common Femoral vein. Short segment of superficial phlebitis noted in left Short Saphenous vein. : BOB MAIN > Daniel Linn
== END 2017-12-02 19:17 | disposition home or self-care (01) ==
LOC: ER 15:10
DX: O22.20 Superficial thrombophlebitis in pregnancy, unspecified trimester (principal); O99.89 Other specified diseases and conditions complicating pregnancy, childbirth and the puerperium; M79.662 Pain in left lower leg; Z3A.00 Weeks of gestation of pregnancy not specified; Z91.048 Other nonmedicinal substance allergy status; Z91.018 Allergy to other foods; Z91.040 Latex allergy status; Z88.8 Allergy status to other drugs, medicaments and biological substances; Z87.891 Personal history of nicotine dependence
CPT/HCPCS: 36415; 81025; 85025; 85610; 85730; 93971; 99284

== ENCOUNTER 2017-12-05 16:31 | Emergency (ER) | payer MEDICAID ==
--- NOTE | 2017-12-05 16:59 | ER Document Report ---
ED Medical Screen (RME) - General Chief Complaint: Leg Pain Stated Complaint: LEFT LEG PAIN Time Seen by Provider: 12/05/17 16:57 Mode of Arrival: Ambulatory Information source: Patient Notes: This is a 22-year-old female who is in the first trimester who was recently diagnosed with superficial phlebitis of the right lower extremity who now presents with worsening pain moving up into the popliteal region. She denies chest pain or shortness of breath. Risk factors: , overweight, mother with a history of VTE. TRAVEL OUTSIDE OF THE [place] IN LAST 30 DAYS: No - Related Data Allergies/Adverse Reactions: adhesive [Adhesive] Allergy (Verified 12/05/17 16:35) cinnamon [Cinnamon] Allergy (Verified 12/05/17 16:35) lamotrigine [From Lamictal ODT] Allergy (Verified 12/05/17 16:35) latex [Latex] Allergy (Verified 12/05/17 16:35) Past Medical History - Social History Chew tobacco use (# tins/day): No Frequency of alcohol use: None Drug Abuse: None Renal/ Medical History: Denies: Hx Peritoneal Dialysis GI Medical History: Reports: Hx Ulcerative Colitis Psychiatric Medical History: Reports: Hx Anxiety, Hx Depression - anxiety, Hx Post Traumatic Stress Disorder Past Surgical History: Reports: Hx Tonsillectomy - adnoids - Immunizations Immunizations up to date: Yes Hx Diphtheria, Pertussis, Tetanus Vaccination: No Physical Exam - Vital signs Vitals: Temp Pulse Resp BP Pulse Ox 98.1 F 97 16 125/68 100 12/05/17 16:48 12/05/17 16:48 12/05/17 16:48 12/05/17 16:48 12/05/17 16:48 Course - Vital Signs Vital signs: Temp Pulse Resp BP Pulse Ox 98.1 F 97 16 125/68 100 12/05/17 16:48 12/05/17 16:48 12/05/17 16:48 12/05/17 16:48 12/05/17 16:48
--- NOTE | 2017-12-05 17:59 | ER Document Report ---
ED General - General Chief Complaint: Leg Pain Stated Complaint: LEFT LEG PAIN Time Seen by Provider: 12/05/17 16:57 Mode of Arrival: Ambulatory TRAVEL OUTSIDE OF THE [place] IN LAST 30 DAYS: No - HPI Notes: 22 yo white female currently 6 weeks by report presents with 1 week left posterior calf discomfort. Patient states she was seen 3 days ago when she had a negative ultrasound with exception of superficial thrombophlebitis, but she questions if the situation is gotten worse with her discomfort and swelling and so she presents again for evaluation. She denies any chest pain, shortness of breath, numbness, paresthesia, injury, fever, chills. No vaginal discharge or bleeding. Mom had DVTs and blood clots and of a ruptured aortic aneurysm at age 42. A grandmother of an aortic thoracic aneurysm at an older age. Family history - Related Data Allergies/Adverse Reactions: adhesive [Adhesive] Allergy (Verified 12/05/17 16:35) cinnamon [Cinnamon] Allergy (Verified 12/05/17 16:35) lamotrigine [From Lamictal ODT] Allergy (Verified 12/05/17 16:35) latex [Latex] Allergy (Verified 12/05/17 16:35) Past Medical History - General Information source: Patient - Social History Smoking Status: Never Smoker Chew tobacco use (# tins/day): No Frequency of alcohol use: None Drug Abuse: None Family History: None, Other Patient has suicidal ideation: No Patient has homicidal ideation: No Renal/ Medical History: Denies: Hx Peritoneal Dialysis GI Medical History: Reports: Hx Ulcerative Colitis Psychiatric Medical History: Reports: Hx Anxiety, Hx Depression - anxiety, Hx Post Traumatic Stress Disorder Past Surgical History: Reports: Hx Tonsillectomy - adnoids - Immunizations Immunizations up to date: Yes Hx Diphtheria, Pertussis, Tetanus Vaccination: No Review of Systems - Review of Systems Notes: REVIEW OF SYSTEMS: CONSTITUTIONAL : Denies fever, chills, or sweats. Denies recent illness. EENT: Denies eye, ear, throat, or mouth pain or symptoms. Denies nasal or sinus congestion or discharge. Denies throat, tongue, or mouth swelling or difficulty swallowing. CARDIOVASCULAR: Denies chest pain. Denies palpitations or racing or irregular heart beat. Denies ankle edema. RESPIRATORY: Denies cough, cold, or chest congestion. Denies shortness of breath, difficulty breathing, or wheezing. GASTROINTESTINAL: Denies abdominal pain or distention. Denies nausea, vomiting , or diarrhea. Denies blood in vomitus, stools, or per rectum. Denies black, tarry stools. Denies constipation. GENITOURINARY: Denies difficulty urinating, painful urination, burning, frequency, blood in urine, or discharge. FEMALE GENITOURINARY: Denies vaginal bleeding, heavy or abnormal periods, irregular periods. Denies vaginal discharge or odor. MUSCULOSKELETAL: Denies back or neck pain or stiffness. Denies joint pain group grocery store legal. SKIN: Denies rash, lesions or sores. HEMATOLOGIC : Denies easy bruising or bleeding. LYMPHATIC: Denies swollen, enlarged glands. NEUROLOGICAL: Denies confusion or altered mental status. Denies passing out or loss of consciousness. Denies dizziness or lightheadedness. Denies headache. Denies weakness or paralysis or loss of use of either side. Denies problems with gait or speech. Denies sensory loss, numbness, or tingling. Denies seizures. PSYCHIATRIC: Denies anxiety or stress. Denies depression, suicidal ideation, or homicidal ideation. ALL OTHER SYSTEMS REVIEWED AND NEGATIVE. Dictation was performed using [employer] voice recognition software Physical Exam - Vital signs Vitals: Temp Pulse Resp BP Pulse Ox 98.1 F 97 16 125/68 100 12/05/17 16:48 12/05/17 16:48 12/05/17 16:48 12/05/17 16:48 12/05/17 16:48 - Notes Notes: PHYSICAL EXAMINATION: GENERAL: Well-appearing, well-nourished and in no acute distress. HEAD: Atraumatic, normocephalic. EYES: Pupils equal round and reactive to light, extraocular movements intact, conjunctiva are normal. ENT: Nares patent, oropharynx clear without exudates. Moist mucous membranes. NECK: Normal range of motion, supple without lymphadenopathy LUNGS: Breath sounds clear to auscultation bilaterally and equal. No wheezes rales or rhonchi. HEART: Regular rate and rhythm without murmurs ABDOMEN: Soft, nontender, nondistended abdomen. No guarding, no rebound. No masses appreciated. Female : deferred Musculoskeletal: Normal range of motion, no pitting or edema. No cyanosis. Bilat trace edema. No palp cord. Neg Homans. Mild pain over the L calf region without any active cellulitis or abscess. No active evidence for infection. Distally, neurovascularly intact. no significant palpable mass. T NEUROLOGICAL: Cranial nerves grossly intact. Normal speech, normal gait. Normal sensory, motor exams PSYCH: Normal mood, normal affect. SKIN: Warm, Dry, normal turgor, no rashes or lesions noted. Course - Re-evaluation Re-evalutation: 12/05/17 20:24 Preliminary evaluation by the veterinary technician that discussed the case with me showed no DVT, only showing superficial thrombophlebitis. There is no evidence for abscess or neurovascular compromise. The patient has no significant distal swelling. She has no obvious evidence for PE clinically. We will advise patient follow-up with [facility] as soon as possible, but patient will still observe conservative measures with compression stockings and massage and Tylenol and outpatient evaluation. Patient was told she may need blood studies to look for thrombosis risk given family history, although she has never had difficulty with DVTs or phlebitis in the past. - Vital Signs Vital signs: Temp Pulse Resp BP Pulse Ox 98.1 F 97 16 125/68 100 12/05/17 16:48 12/05/17 16:48 12/05/17 16:48 12/05/17 16:48 12/05/17 16:48 Discharge - Discharge Clinical Impression: Thrombophlebitis Superficial thrombophlebitis during Qualifiers: Trimester: first trimester Qualified Code(s): O22.21 - Superficial thrombophlebitis in , first trimester Condition: Stable Disposition: HOME, SELF-CARE Instructions: Superficial Phlebitis ([facility]) Additional Instructions: Your venous ultrasound shows that you have superficial thrombophlebitis, You do not have blood clot. Advised to take Tylenol as needed for pain. Apply heat 20 minutes on 20 minutes off several times a day. Follow-up with your doctor within 1-2 days. Please return to emergency department if you notice worsening pain to the affected area if you develop shortness of breath or chest pain, or have any other symptoms that are concerning to you. Wear compression stockings. Referrals: RAJINDER CREWS MD [ACTIVE STAFF] - Follow up as needed
[2017-12-05 20:39] VITALS: BP 114/64
--- NOTE | 2017-12-06 16:45 | XCELERA REPORT ---
[address] [address] Lower Extremity Venous Evaluation Name: GERMAIN JOHNS Age: 22 yrs Gender: Female : 1995 Patient Status: Emergency Patient Location: ER Study Date: 12/05/2017 06:05 PM Procedure: Color flow and duplex imaging of the veins of the left lower extremity as well as the right Common Femoral vein. Reason For Study: lle swelling Ordering Physician: DESIREE HARMON Performed By: Jefferson Barroso Right Sided Venous Evaluation The right common femoral vein is fully compressible. Spontaneous and phasic flow is present in the right common femoral vein. Left Sided Venous Evaluation Normal vessel filling wall to wall, compression and augmentation as well as Colour flow down to the infrageniculate veins. Interpretation Summary No duplex evidence of DVT or obstruction in the left lower extremity nor in the right Common Femoral vein. There is limited superficial phlebitis in the left Short Saphenous vein. : DESIREE HARMON > Daniel Linn
== END 2017-12-05 20:36 | disposition home or self-care (01) ==
LOC: ER 16:31
DX: O22.21 Superficial thrombophlebitis in pregnancy, first trimester (principal); M79.605 Pain in left leg; Z3A.01 Less than 8 weeks gestation of pregnancy
CPT/HCPCS: 93971; 99284

== ENCOUNTER 2017-12-11 02:34 | Emergency (ER) | payer SELFPAY ==
--- NOTE | 2017-12-11 03:17 | ER Document Report ---
ED General - General Chief Complaint: Chest Pain Stated Complaint: CHEST PAIN Time Seen by Provider: 12/11/17 03:14 Notes: Patient is a 22-year-old female presents with complaints of intermittent chest pain. She said the pain is worse when she twists or moves but also if she takes a deep breath. She said she is unsure if his anxiety is she has been very anxious because she is 5 weeks and she was recently diagnosed with a superficial thrombophlebitis of the left leg. She says the pain is been there since the diagnosis of superficial phlebitis with this could be anxiety related however she is still concerned that she is having propagation of a clot into her deep veins and then into her lungs. No other complaints at this time. TRAVEL OUTSIDE OF THE [place] IN LAST 30 DAYS: No - Related Data Allergies/Adverse Reactions: adhesive [Adhesive] Allergy (Verified 12/11/17 03:43) cinnamon [Cinnamon] Allergy (Verified 12/11/17 03:43) lamotrigine [From Lamictal ODT] Allergy (Verified 12/11/17 03:43) latex [Latex] Allergy (Verified 12/11/17 03:43) Past Medical History - Social History Smoking Status: Never Smoker Frequency of alcohol use: None Drug Abuse: None Family History: None, Other Renal/ Medical History: Denies: Hx Peritoneal Dialysis GI Medical History: Reports: Hx Ulcerative Colitis Psychiatric Medical History: Reports: Hx Anxiety, Hx Depression - anxiety, Hx Post Traumatic Stress Disorder Past Surgical History: Reports: Hx Tonsillectomy - adnoids - Immunizations Immunizations up to date: Yes Hx Diphtheria, Pertussis, Tetanus Vaccination: No Review of Systems - Review of Systems Notes: My Normal Review Basic REVIEW OF SYSTEMS: CONSTITUTIONAL : Denies fever, chills, or sweats. Denies recent illness. EENT: Denies eye, ear, throat, or mouth pain or symptoms. Denies nasal or sinus congestion. CARDIOVASCULAR: chest pain. RESPIRATORY: Denies cough, cold, or chest congestion. Denies shortness of breath, difficulty breathing, or wheezing. GASTROINTESTINAL: Denies abdominal pain. Denies nausea, vomiting, or diarrhea. GENITOURINARY: Denies difficulty urinating, painful urination, burning, frequency, or blood in urine. FEMALE GENITOURINARY: Denies vaginal bleeding, abnormal or irregular periods. LMP: 5 weeks MUSCULOSKELETAL: Some back pain SKIN: Denies rash or skin lesions. PSYCHIATRIC: anxiety ALL OTHER SYSTEMS REVIEWED AND NEGATIVE. Physical Exam - Vital signs Vitals: Temp Pulse Resp BP Pulse Ox 99.3 F 85 20 127/71 H 100 12/11/17 02:47 12/11/17 02:47 12/11/17 02:47 12/11/17 02:47 12/11/17 02:47 - Notes Notes: General Appearance: Well nourished, alert, cooperative, no acute distress, no obvious discomfort. Appearing. Vitals: reviewed, See vital signs table. Head: no swelling or tenderness to the head Eyes: PERRL, EOMI, Conjuctiva clear Mouth: No decreasd moisture Throat: No tonsillar inflammation, No airway obstruction, No lymphadenopathy Neck: Supple, no neck tenderness, No thyromegaly Chest wall: Mild pain to palpation over left parasternal area. Lungs: No wheezing, No rales, No rhonci, No accessory muscle use, good air exchange bilaterally. Heart: Normal rate, Regular rythm, No murmur, no rub Abdomen: Normal BS, soft, No rigidity, No abdominal tenderness, No guarding, no rebound, no abdominal masses, no organomegaly Extremities: strength 5/5 in all extremities, good pulses in all extremities, no swelling or tenderness in the extremities, no edema. Skin: warm, dry, appropriate color, no rash Neuro: speech clear, oriented x 3, normal affect, responds appropriately to questions. Course - Re-evaluation Re-evalutation: 12/11/17 03:39 On bedside ultrasound she has good compression of the femoral vein flow. I cannot get good compression of the popliteal vein at this time and therefore will arrange for a official ultrasound to make sure she is not propagating to DVT. I think PE is unlikely being the patient has some reproduction of pain with twisting of her torso and also being that her vital signs are completely normal. If the patient does have a DVT now on ultrasound and will obtain a CTA of her chest. DVT study is negative as it was previously then I do not think that the risk of radiation from CT scan would outweigh the benefits of the test. 12/11/17 03:40 12/11/17 23:10 Patient's ultrasound does not show evidence of DVT. I do not think her chest pain is related to PE. I do not think it is PE being that she has had multiple ultrasounds of her legs felt evidence of DVT, her chest pain is reproducible palpation and with movement, and her vital signs are normal. I therefore feel that the risk radiation outweighs the benefits of doing a CT scan of her chest being that the likelihood of PE is very low. Patient was discharged home with instructions to return to ER if she has worsening chest pain, difficulty breathing, worsening leg pain, or she felt unwell. Dictation of this chart was performed using voice recognition software; therefore, there may be some unintended grammatical errors. - Vital Signs Vital signs: Temp Pulse Resp BP Pulse Ox 97.8 F 84 16 119/64 99 12/11/17 10:17 12/11/17 10:17 12/11/17 10:17 12/11/17 10:17 12/11/17 10:17 - EKG Interpretation by Me Additional EKG results interpreted by me: 12/11/17 03:16 EKG is reviewed and interpreted by me. EKG shows normal sinus rhythm with rate of [address] segment elevation or depression. No ischemic T-wave inversions. AR interval, QRS duration, QTc intervals are within normal range. Old EKG for comparison is from October 29, 2017. Discharge - Discharge Clinical Impression: Superficial thrombophlebitis during Qualifiers: Trimester: first trimester Qualified Code(s): O22.21 - Superficial thrombophlebitis in , first trimester Chest pain Qualifiers: Chest pain type: unspecified Qualified Code(s): R07.9 - Chest pain, unspecified Disposition: HOME, SELF-CARE Additional Instructions: Your ultrasound does not show evidence of a blood clot in a deep vein of your leg. I do not suspect your chest pain is related to a blood clot in your lungs. Please follow up with your OB doctor on wednesday for reevaluation. Please return to the ER immediately if you have difficulty breathing, rapid heart beat, worsening chest pain, or if you feel unwell.
--- NOTE | 2017-12-11 04:47 | RADIOLOGY REPORT (SQ) ---
EXAM DESCRIPTION: XR CHEST 1 VIEW CLINICAL HISTORY: 22 years Female, chest pain COMPARISON: 12.24.17 NUMBER OF VIEWS/TECHNIQUE: 1/AP FINDINGS: Adequate lung volume, clear parenchyma, normal cardiac silhouette, and intact bony thorax. IMPRESSION: No acute cardiopulmonary findings.
--- NOTE | 2017-12-11 07:06 | EKG REPORT ---
SEVERITY:- NORMAL ECG - SINUS RHYTHM : Confirmed by: Max Pelaez MD 11-Dec-2017 07:05:26
--- NOTE | 2017-12-11 10:15 | RADIOLOGY REPORT (SQ) ---
EXAM DESCRIPTION: VENOUS UNILATERAL LOWER COMPLETED DATE/TIME: 12/11/2017 10:06 am REASON FOR STUDY: left leg COMPARISON: 12/05/2017 and 12/02/2017. TECHNIQUE: Dynamic and static nj scale and color images acquired of the left leg venous system. Se lected spectral images acquired with additional compression and augmentation maneuvers. The contralat eral common femoral vein and saphenofemoral junction were also imaged. Images stored on PACS. LIMITATIONS: None. FINDINGS: COMMON FEMORAL: Normal phasicity, compression and augmentation. No visualized echogenic ma terial on nj scale. No defects on color images. FEMORAL: Normal compression and augmentation. No visualized echogenic material on nj scale. No defe cts on color images. POPLITEAL: Normal compression, augmentation. No visualized echogenic material on nj scale. No defec ts on color images. CALF VESSELS: Normal compression, augmentation. No visualized echogenic material on nj scale. No de fects on color images. GSV and SSV: Thrombus in the SSV. The GSV patent. ANY DEEP VENOUS INSUFFICIENCY: Not evaluated. ANY EVIDENCE OF POPLITEAL CYST: No. OTHER: No other significant finding. CONTRALATERAL COMMON FEMORAL VEIN AND SAPHENOFEMORAL JUNCTION: Normal phasicity, compression and augmentation. No visualized echogenic material on nj scale. No de fects on color images. IMPRESSION: NO EVIDENCE OF DVT IN THE LEFT LEG. THROMBUS IN THE SSV, UNCHANGED. TECHNICAL DOCUMENTATION: JOB ID: [id number] [employer]- All Rights Reserved Reading location - IP/workstation name: [email or web address]
[2017-12-11 10:18] VITALS: BP 119/64
== END 2017-12-11 10:18 | disposition home or self-care (01) ==
LOC: ER 02:34
DX: O22.21 Superficial thrombophlebitis in pregnancy, first trimester (principal); I80.02 Phlebitis and thrombophlebitis of superficial vessels of left lower extremity; O26.891 Other specified pregnancy related conditions, first trimester; O99.341 Other mental disorders complicating pregnancy, first trimester; F41.9 Anxiety disorder, unspecified; R07.9 Chest pain, unspecified; O99.89 Other specified diseases and conditions complicating pregnancy, childbirth and the puerperium; M54.9 Dorsalgia, unspecified; Z3A.01 Less than 8 weeks gestation of pregnancy; Z91.048 Other nonmedicinal substance allergy status; Z91.018 Allergy to other foods; Z88.8 Allergy status to other drugs, medicaments and biological substances; Z91.040 Latex allergy status
CPT/HCPCS: 71045; 93005; 93010; 93971; 99285

== ENCOUNTER 2017-12-23 09:50 | Emergency (ER) | payer MEDICAID ==
--- NOTE | 2017-12-23 10:27 | ER Document Report ---
ED Medical Screen (RME) - General TRAVEL OUTSIDE OF THE [place] IN LAST 30 DAYS: No <ZARINA IBARRA - Last Filed: 12/23/17 10:51> <ELAYNE GERBER - Last Filed: 12/23/17 21:46> - General Chief Complaint: Leg Pain Stated Complaint: DIZZY, ANKLE PAIN Time Seen by Provider: 12/23/17 10:10 Notes: Patient is a 7 week 22-year-old female that presents to the emergency department today with complaints of a "new clot" in her left lower extremity today. Patient states she has had multiple superficial clots in her left lower extremity. Patient states that her family has a "clotting disorder" but she is unsure of the name of it. Patient states she has been wearing a compression stocking over the left lower extremity which has not helped her pain. Patient describes her left lower extremity as a "burning baseball". Patient has vomited once. I have greeted and performed a rapid initial assessment of this patient. A comprehensive ED assessment and evaluation of the patient, analysis of test results, and completion of the medical decision making process will be conducted by additional ED providers. Review of systems: Constitutional: No symptoms reported EENT: No symptoms reported Cardiovascular: No symptoms reported Respiratory: No symptoms reported Gastrointestinal: Vomiting x1. Genitourinary: No symptoms reported Musculoskeletal: Left calf swelling and pain. Skin: No symptoms reported Hematologic/Lymphatic: No symptoms reported Neurological/Psychological: No symptoms reported Yes All other systems reviewed and negative Physical Exam: General: Alert, appears well. Obese. HEENT: Normocephalic. Atraumatic. PERRLA. Extraocular movements intact. Oropharynx clear. Neck: Supple. Cardiovascular: Regular rate and rhythm. No murmurs, gallops, or rubs. Respiratory: No respiratory distress. Clear and equal breath sounds bilaterally. Abdominal: Normal Inspection. No distension. Extremities: Moves all four extremities. Slight firmness with swelling lateral to the Achilles tendon on the left. No erythema or evidence of superficial thrombophlebitis. No induration. Neurological: Normal cognition. AAOx4. Normal speech. Psychological: Normal affect. Normal Mood. Skin: Warm. Dry. Normal color. (ZARINA IBARRA) - Related Data Allergies/Adverse Reactions: adhesive [Adhesive] Allergy (Verified 12/23/17 10:07) cinnamon [Cinnamon] Allergy (Verified 12/23/17 10:07) lamotrigine [From Lamictal ODT] Allergy (Verified 12/23/17 10:07) latex [Latex] Allergy (Verified 12/23/17 10:07) Past Medical History - Social History Chew tobacco use (# tins/day): No Frequency of alcohol use: None Drug Abuse: None Renal/ Medical History: Denies: Hx Peritoneal Dialysis GI Medical History: Reports: Hx Ulcerative Colitis Psychiatric Medical History: Reports: Hx Anxiety, Hx Depression - anxiety, Hx Post Traumatic Stress Disorder Past Surgical History: Reports: Hx Tonsillectomy - adnoids - Immunizations Immunizations up to date: Yes Hx Diphtheria, Pertussis, Tetanus Vaccination: No <ZARINA IBARRA - Last Filed: 12/23/17 10:51> - Vital signs Vitals: Temp Pulse Resp BP Pulse Ox 99.4 F 95 16 142/74 H 100 12/23/17 09:55 12/23/17 09:55 12/23/17 09:55 12/23/17 09:55 12/23/17 09:55 Course - Laboratory Result Diagrams: 12/23/17 13:28 12/23/17 10:53 <ELAYNE GERBER - Last Filed: 12/23/17 21:46> - Vital Signs Vital signs: Temp Pulse Resp BP Pulse Ox 98.3 F 85 18 118/64 100 12/23/17 13:51 12/23/17 13:51 12/23/17 13:51 12/23/17 13:51 12/23/17 13:51 - Laboratory Laboratory results interpreted by me: 12/23/17 12/23/17 10:53 13:28 WBC 13.9 H Absolute Neutrophils 10.3 H Creatinine 0.47 L Doctor's Discharge <ZARINA IBARRA - Last Filed: 12/23/17 10:51> <ELAYNE GERBER - Last Filed: 12/23/17 21:46> - Discharge Clinical Impression: 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
--- NOTE | 2017-12-23 11:01 | ER Document Report ---
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 She states the lower leg pain moves to different locations. She is . She is worried because she had a family member that of a blood clot. Chest pain or shortness of breath. No leg swelling. TRAVEL OUTSIDE OF THE [place] IN LAST 30 DAYS: No - Related Data Allergies/Adverse Reactions: adhesive [Adhesive] Allergy (Verified 12/23/17 10:07) cinnamon [Cinnamon] Allergy (Verified 12/23/17 10:07) lamotrigine [From Lamictal ODT] Allergy (Verified 12/23/17 10:07) latex [Latex] Allergy (Verified 12/23/17 10:07) Past Medical History - General Information source: Patient - Social History Smoking Status: Never Smoker Chew tobacco use (# tins/day): No Frequency of alcohol use: None Drug Abuse: None Family History: None, Other Patient has suicidal ideation: No Patient has homicidal ideation: No Renal/ Medical History: Denies: Hx Peritoneal Dialysis GI Medical History: Reports: Hx Ulcerative Colitis Psychiatric Medical History: Reports: Hx Anxiety, Hx Depression - anxiety, Hx Post Traumatic Stress Disorder Surgical Hx: Negative Past Surgical History: Reports: Hx Tonsillectomy - adnoids - Immunizations Immunizations up to date: Yes Hx Diphtheria, Pertussis, Tetanus Vaccination: No Review of Systems - Review of Systems Constitutional: No symptoms reported EENT: No symptoms reported Cardiovascular: No symptoms reported Respiratory: No symptoms reported Gastrointestinal: No symptoms reported Genitourinary: No symptoms reported Female Genitourinary: No symptoms reported Musculoskeletal: See HPI Skin: No symptoms reported Hematologic/Lymphatic: No symptoms reported Neurological/Psychological: No symptoms reported Physical Exam - Vital signs Vitals: Temp Pulse Resp BP Pulse Ox 99.4 F 95 16 142/74 H 100 12/23/17 09:55 12/23/17 09:55 12/23/17 09:55 12/23/17 09:55 12/23/17 09:55 Interpretation: Normal - General General appearance: Appears well, Alert In distress: None - HEENT Head: Normocephalic, Atraumatic Eyes: Normal Pupils: PERRL Neck: Supple - Respiratory Respiratory status: No respiratory distress Chest status: Nontender Breath sounds: Normal Chest palpation: Normal - Cardiovascular Rhythm: Regular Heart sounds: Normal auscultation Murmur: No - Abdominal Inspection: Normal Distension: No distension Bowel sounds: Normal Tenderness: Nontender Organomegaly: No organomegaly - Back Back: Normal, Nontender - Extremities General upper extremity: Normal inspection, Nontender, Normal color, Normal ROM , Normal temperature General lower extremity: Normal inspection, Nontender, Normal color, Normal ROM , Normal temperature, Normal weight bearing. No: Nataly's sign Calf: Nontender Ankle: Other - tender but functional intact achilles - Neurological Neuro grossly intact: Yes Cognition: Normal Orientation: AAOx4 [place] Coma Scale Eye Opening: Spontaneous [place] Coma Scale Verbal: Oriented [place] Coma Scale Motor: Obeys Commands [place] Coma Scale Total: 15 Speech: Normal Motor strength normal: LUE, RUE, LLE, RLE Sensory: Normal - Psychological Associated symptoms: Normal affect, Normal mood - Skin Skin Temperature: Warm Skin Moisture: Dry Skin Color: Normal Skin irregularity: negative: Rash Course - Re-evaluation Re-evalutation: 09:45 - Vital Signs Vital signs: Temp Pulse Resp BP Pulse Ox 98.3 F 85 18 118/64 100 12/23/17 13:51 12/23/17 13:51 12/23/17 13:51 12/23/17 13:51 12/23/17 13:51 - Laboratory Result Diagrams: 12/23/17 13:28 12/23/17 10:53 Laboratory results interpreted by me: 12/23/17 12/23/17 10:53 13:28 WBC 13.9 H Absolute Neutrophils 10.3 H Creatinine 0.47 L Discharge - Discharge Clinical Impression: 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
[2017-12-23 11:31] LABS: ANION GAP 14 (5-19); BLOOD UREA NITROGEN 7 mg/dL (7-20); CALCIUM 10.1 mg/dL (8.4-10.2); CARBON DIOXIDE 23 mmol/L (22-30); CHLORIDE 105 mmol/L (98-107); GLUCOSE 94 mg/dL (75-110); POTASSIUM 3.7 mmol/L (3.6-5.0); SODIUM 141.9 mmol/L (137-145)
--- NOTE | 2017-12-23 13:17 | XCELERA REPORT ---
[address] [address] Lower Extremity Venous Evaluation Name: GERMAIN JOHNS Age: 22 yrs Gender: Female : 1995 Patient Status: Emergency Patient Location: ER Study Date: 12/23/2017 12:11 PM Procedure: Color flow and duplex imaging of the veins of the left lower extremity as well as the right Common Femoral vein. Reason For Study: left leg swelling, h/o ST, no DVT Ordering Physician: ELAYNE GERBER Performed By: Julisa De Oliveira Right Sided Venous Evaluation The right common femoral vein is fully compressible. Spontaneous and phasic flow is present in the right common femoral vein. Left Sided Venous Evaluation Small Short Saphenous vein has no flow, echogenic, hard to see. Otherwise normal vessel filling wall to wall, compression and augmentation as well as Colour flow down to the infrageniculate veins. Interpretation Summary No duplex evidence of DVT or obstruction in the left lower extremity nor in the right Common Femoral vein. Chronic phlebitis in the Short Saphenous vein on the left. : ELAYNE GERBER > Daniel Linn
[2017-12-23 13:40] LABS: ABSOLUTE BASOPHILS # (AUTO) 0.1 10^3/uL (0.0-0.2); ABSOLUTE EOSINOPHILS # (AUTO) 0.1 10^3/uL (0.0-0.6); ABSOLUTE LYMPHOCYTES (AUTO) 2.8 10^3/uL (0.5-4.7); ABSOLUTE MONOCYTES (AUTO) 0.7 10^3/uL (0.1-1.4); ABSOLUTE NEUT (AUTO) 10.3 10^3/uL (1.7-8.2); BASOPHILS % (AUTO) 0.4 % (0-2); EOSINOPHILS % (AUTO) 0.4 % (0-6); HEMATOCRIT 39.8 % (36.0-47.0); HEMOGLOBIN 13.9 g/dL (12.0-15.5); MEAN CORPUSCULAR HEMOGLOBIN 29.4 pg (27.0-33.4); MEAN CORPUSCULAR HGB CONC 34.9 g/dL (32.0-36.0); MEAN CORPUSCULAR VOLUME 84 fl (80-97); MONOCYTES % (AUTO) 5.2 % (3-13); PLATELET COUNT 300 10^3/uL (150-450); RED BLOOD COUNT 4.72 10^6/uL (3.72-5.28); RED CELL DISTRIBUTION WIDTH 12.8 % (11.5-14.0); TOTAL CELLS COUNTED % (AUTO) 100 %; WHITE BLOOD COUNT 13.9 10^3/uL (4.0-10.5)
[2017-12-23 13:46] LABS: INTERNATIONAL RATION (INR) 0.97; PROTHROMBIN TIME 13.4 SEC (11.4-15.4)
[2017-12-23 14:03] VITALS: BP 118/64
== END 2017-12-23 14:13 | disposition home or self-care (01) ==
LOC: ER 09:50
DX: O22.21 Superficial thrombophlebitis in pregnancy, first trimester (principal); O26.891 Other specified pregnancy related conditions, first trimester; R42 Dizziness and giddiness; M79.605 Pain in left leg; M25.572 Pain in left ankle and joints of left foot; Z3A.01 Less than 8 weeks gestation of pregnancy
CPT/HCPCS: 36415; 80048; 85025; 85610; 93971; 99284

== ENCOUNTER → 2017-12-24 | Outpatient (CLI) | payer MEDICAID ==
--- NOTE | 2017-12-24 16:36 | RADIOLOGY REPORT (SQ) ---
EXAM DESCRIPTION: U/S [id number] TRNABD 1GES W/ODOP COMPLETED DATE/TIME: 12/24/2017 2:52 pm REASON FOR STUDY: Z34.01 ENCNTR FOR SUPRVSN OF NORMAL FIRST PREG, FIRST TRIMESTER Z34.01 ENCNTR FOR SUPRVSN OF NORMAL FIRST PREG, FIRST TRIMES COMPARISON: None. TECHNIQUE: Transvaginal static and realtime grayscale images acquired of the pelvis. Additional jayne cted spectral and color Doppler images recorded. All images stored on PACs. bHCG: Not available CLINICAL DATES: 12 weeks 1 day LIMITATIONS: None. FINDINGS: FETUS: Living intrauterine . ULTRASOUND EGA: 8 weeks 3 days ULTRASOUND SANAM: 08/04/2018 CRL: 19 mm FHR: 165 beats per minute. SUBCHORIONIC BLEED: No SIZE OF BLEED: Not applicable. UTERUS: No masses. No anomalies. CERVICAL LENGTH: 3.8 cm Closed. RIGHT ADNEXA: Normal ovary with normal vascular flow. No adnexal free fluid. Right ovarian cyst is identified measuring 2.6 x 2.0 x 1.6 cm LEFT ADNEXA: Left ovary is not identified. No adnexal free fluid. No adnexal masses. FREE FLUID: None. OTHER: No other significant finding. IMPRESSION: LIVING INTRAUTERINE . EGA 8 weeks 3 days Trimester of : First - 0 to 13 weeks. TECHNICAL DOCUMENTATION: JOB ID: [id number] [employer]- All Rights Reserved rev-12/03 Reading location - IP/workstation name: [facility]
== END ==
LOC: RAD 14:14
PROVIDERS: ATTEND Nurse Practitioner Women's Health
DX: Z34.01 Encounter for supervision of normal first pregnancy, first trimester (principal)
CPT/HCPCS: 76801

== ENCOUNTER 2018-05-18 19:41 | Outpatient (CLI) | payer MEDICAID ==
[2018-05-18 20:34] LABS: URINE AMPHETAMINES SCREEN NEGATIVE; URINE BARBITURATES SCREEN NEGATIVE; URINE BENZODIAZEPINES SCREEN NEGATIVE; URINE COCAINE SCREEN NEGATIVE; URINE MARIJUANA (THC) SCREEN NEGATIVE; URINE METHADONE SCREEN NEGATIVE; URINE PHENCYCLIDINE SCREEN NEGATIVE
[2018-05-18 20:37] LABS: APPEARANCE,URINE SLIGHTLY-CLOUDY; BILIRUBIN,URINE NEGATIVE (NEGATIVE); COLOR,URINE STRAW; GLUCOSE, URINE NEGATIVE (NEGATIVE); KETONES,URINE NEGATIVE (NEGATIVE); LEUKOCYTE ESTERASE,URINE SMALL (NEGATIVE); NITRITE,URINE NEGATIVE (NEGATIVE); PROTEIN,URINE NEGATIVE (NEGATIVE); URINE SPECIFIC GRAVITY 1.004; UROBILINOGEN,URINE NEGATIVE mg/dL (<2.0)
== END 2018-05-18 21:10 | disposition home or self-care (01) ==
LOC: LC 19:41
PROVIDERS: ATTEND Obstetrics & Gynecology
PROC: 4A1HXCZ Monitoring of Products of Conception, Cardiac Rate, External Approach (ICD-10-PCS; principal; 2018-05-18)
DX: O46.93 Antepartum hemorrhage, unspecified, third trimester (principal); O47.03 False labor before 37 completed weeks of gestation, third trimester; Z3A.28 28 weeks gestation of pregnancy
CPT/HCPCS: 80307; 81001

== ENCOUNTER 2018-05-27 18:52 | Outpatient (CLI) | payer MEDICAID ==
[2018-05-27 19:54] LABS: APPEARANCE,URINE CLOUDY; BILIRUBIN,URINE NEGATIVE (NEGATIVE); COLOR,URINE YELLOW; GLUCOSE, URINE NEGATIVE (NEGATIVE); KETONES,URINE NEGATIVE (NEGATIVE); LEUKOCYTE ESTERASE,URINE LARGE (NEGATIVE); NITRITE,URINE NEGATIVE (NEGATIVE); PROTEIN,URINE NEGATIVE (NEGATIVE); URINE SPECIFIC GRAVITY 1.017; UROBILINOGEN,URINE NEGATIVE mg/dL (<2.0)
[2018-05-27 20:04] LABS: URINE AMPHETAMINES SCREEN NEGATIVE; URINE BARBITURATES SCREEN NEGATIVE; URINE BENZODIAZEPINES SCREEN NEGATIVE; URINE COCAINE SCREEN NEGATIVE; URINE MARIJUANA (THC) SCREEN NEGATIVE; URINE METHADONE SCREEN NEGATIVE; URINE PHENCYCLIDINE SCREEN NEGATIVE
--- NOTE | 2018-05-27 21:50 | RADIOLOGY REPORT (SQ) ---
US PELVIS HISTORY: Back pain. 30 weeks . Evaluate cervical length. COMPARISON: None. TECHNIQUE: Limited grayscale and Doppler images of the pelvis were obtained. FINDINGS: Limited images of the pelvis demonstrate intrauterine with a heart rate of 140 bpm. The cervix is closed and measures 3.8 cm in length. IMPRESSION: heart rate of 140 bpm. Cervix is closed and measures 3.8 cm in length.
== END 2018-05-27 21:59 | disposition home or self-care (01) ==
LOC: LC 18:52
PROVIDERS: ATTEND Student in an Organized Health Care Education/Training Program
DX: O47.03 False labor before 37 completed weeks of gestation, third trimester (principal); O26.893 Other specified pregnancy related conditions, third trimester; M54.9 Dorsalgia, unspecified; Z3A.30 30 weeks gestation of pregnancy
CPT/HCPCS: 76815; 80307; 81001